=== PATIENT | male | born 1940 | race Caucasian/White ===

== ENCOUNTER 2019-11-19 09:51 | Day surgery (SDC) | payer OTHER, SELFPAY ==
[~2019-11-19] VITALS: Ht 188 cm; Wt 134.7 kg
[~2019-11-19 09:51] MED LIST: CEFAZOLIN SOD 2 GM in D5W 50 ML IV ONE
[2019-11-19 10:58] LABS: HEMATOCRIT 43.7 % (36-54); HEMOGLOBIN 14.5 g/dL (14.0-18.0); MEAN CORPUSCULAR HEMOGLOBIN 29 pg (27-31); MEAN CORPUSCULAR HGB CONC 33 % (32-36); MEAN CORPUSCULAR VOLUME 88 fL (79.0-98.0); PLATELET COUNT (AUTO) 124 K/uL (130-430); RED BLOOD CELL COUNT(AUTO) 4.95 MIL/uL (4.2-6.2); RED CELL DISTRIBUTION WIDTH 14.2 % (9.0-15.0); WHITE BLOOD COUNT (AUTO) 8.6 K/uL (4.8-10.8)
[2019-11-19 11:12] LABS: ALANINE AMINOTRANSFERASE 36 U/L (12-78); ALBUMIN 3.9 g/dL (3.4-4.8); ANION GAP 12 (5-15); ASPARTATE AMINOTRANSFERASE 24 U/L (10-37); CHLORIDE 103 mmol/L (98-107); GLUCOSE 128 mg/dL (70-99); POTASSIUM 3.8 mmol/L (3.5-5.1); SODIUM SERUM 141 mmol/L (136-145); TOTAL BILIRUBIN 0.7 mg/dL (0.0-1.0); UREA NITROGEN, BLOOD 15 mg/dL (8-21)
[2019-11-19 11:19] LABS: ATYPICAL LYMPHOCYTES % 11 % (0-0); BAND % (MANUAL) 3 % (0-6); BASOPHILS % (MANUAL) 0 % (0-2); EOSINOPHILS % (MANUAL) 0 % (0-7); LYMPHOCYTES % (MANUAL) 35 % (20-46); MONOCYTES % (MANUAL) 2 % (0-11)
[2019-11-19] MEDS ORDERED: POLYMYXIN 500,000/BACIT.10,000 UNITS in NS IRR 1 L IR ONE (15:11)
[2019-11-19] MEDS ORDERED: ONDANSETRON HCL 4 MG/2 ML VIAL IVP PRN ×2 (16:00→21:45)
[2019-11-19] MEDS ORDERED: fentaNYL CITRATE/PF 100 MCG/2 ML AMP IVP PRN ×2 (16:00)
[2019-11-19] MEDS ORDERED: ACETAMINOPHEN 325 MG TABLET PO PRN (21:45)
[2019-11-19] MEDS ORDERED: HYDROcodone/ACETAMIN 5-325 MG TAB (NORCO/ VICODIN) PO PRN ×2 (21:45)
[2019-11-19] MEDS ORDERED: LORazepam 2 MG/ML VIAL IVP PRN (21:45)
[2019-11-19] MEDS ORDERED: LR 1,000 ML IV SCH (21:45)
[2019-11-19] MEDS ORDERED: MORPHINE 2 MG/ML INJ. SYRINGE IVP PRN (21:45)
[2019-11-19] MEDS ORDERED: NORMAL SALINE 5 ML DISP.SYRIN IVF SCH (22:00)
[2019-11-19] MEDS ORDERED: fentaNYL CITRATE/PF 100 MCG/2 ML AMP ONE (22:04)
[2019-11-19] MEDS ORDERED: KETOROLAC TROMETHAMINE 30 MG VIAL IVP ONE (22:30)
[2019-11-19] MEDS ORDERED: KETOROLAC TROMETHAMINE 30 MG VIAL ONE (22:48)
--- NOTE | 2019-11-19 22:50 | NUR ---
Initial Note Received 79 y.o male from PACU status post Robotic assisted laparoscopic bilateral inguinal hernia repair. Received report from XENIA Joshua. A&O x 4. No respiratory distress noted. On O2 2L via nasal canula. No c/o pain or discomfort. Normal saline infusing to left hand without difficulty. Dressings to abdomen clean, dry & intact. Instructed on use of call light & to notify staff if in need of assistance. Verbalized understanding. Bed in low, locked position. Call light within reach.
--- NOTE | 2019-11-20 00:46 | NUR ---
Pain. C/O bilateral arm pain rated 6/10 described as aching pain. Vicodin given as ordered.
[2019-11-20 00:49] VITALS: BP_SYST 136
[2019-11-20 01:32] VITALS: BP_SYST 129
--- NOTE | 2019-11-20 02:55 | NUR ---
Requested assist to sit at side of bed. Assisted to sit at side of bed, tolerated activity well. Denies pain. Instructed to notify staff if in need of assistance. Verbalized understanding. Call light within reach.
--- NOTE | 2019-11-20 07:15 | NUR ---
OPENING NOTES PT AWAKE, ALERT, AND ORIENTED. NONLABORED BREATHING NOTED ON ROOM AIR, O2 AT 93%. PT DENIES PAIN AND SOB AT THIS TIME. NO ACUTE DISTRESS NOTED. IV LINE INTACT AND PATENT, NO SIGNS OF INFILTRATION NOTED. SURGICAL DRESSINGS ON LOWER ABDOMEN CLEAN, DRY, AND INTACT, NO ACTIVE BLEEDING NOTED. BED LOCKED AND IN LOWEST POSITION. ALL NEEDS MET. CALL LIGHT IN REACH. FALL AND ASPIRATION PRECAUTIONS IN PLACE. CONTINUE TO MONITOR.
[2019-11-20 07:18] LABS: BASOPHILS % (AUTO) 0.2 % (0.0-2.0); EOSINOPHILS % (AUTO) 0.1 % (0.0-4.0); HEMATOCRIT 41.9 % (36-54); LYMPHOCYTES # (AUTO) 2.5 K/uL (1.0-5.5); LYMPHOCYTES % (AUTO) 22.1 % (20.5-51.5); MEAN CORPUSCULAR HEMOGLOBIN 29 pg (27-31); MEAN CORPUSCULAR HGB CONC 33 % (32-36); MEAN CORPUSCULAR VOLUME 88 fL (79.0-98.0); MONOCYTES % (AUTO) 9.2 % (1.7-9.3); NEUTROPHILS # (AUTO) 7.7 K/uL (1.8-7.7); NEUTROPHILS % (AUTO) 68.4 % (40.0-70.0); PLATELET COUNT (AUTO) 119 K/uL (130-430); RED BLOOD CELL COUNT(AUTO) 4.75 MIL/uL (4.2-6.2); RED CELL DISTRIBUTION WIDTH 14.3 % (9.0-15.0); WHITE BLOOD COUNT (AUTO) 11.2 K/uL (4.8-10.8)
--- NOTE | 2019-11-20 07:21 | NUR ---
Nutrition Update Pato Scale 15 noted. Pt admitted for BI Inguinal Hernia w/o Obstruction or Gangrene Diet: 2gm Na BMI: 38.1 kg/m2 RD to follow per nutrition care standards.
[2019-11-20 08:00] VITALS: BP_SYST 146
--- NOTE | 2019-11-20 08:30 | NUR ---
PT TOLERATED FOOD WELL, WALKING AROUND THE HALLWAYS WITH PORTAL ADMINISTRATOR, TOLERATING WELL, PT URINATED THIS MORNING WELL. PT STATING WANTING TO GO HOME, WILL SPEAK TO DR. STACK
--- NOTE | 2019-11-20 09:30 | NUR ---
SPOKE TO DR. STACK REGARDING PT'S UPDATES, STATES OK TO D/C, STATED HE WILL INPUT MEDICATIONS TO FINALIZE AND D/C ORDER.
[2019-11-20 09:33] VITALS: BP_SYST 124
[2019-11-20] MEDS ORDERED: DOCU-144 PO (10:03)
[2019-11-20] MEDS ORDERED: HYDR-4272 PO (10:03)
--- NOTE | 2019-11-20 10:26 | NUR ---
PT SPOKE TO DR. STACK OVER THE PHONE REGARDING D/C INSTRUCTIONS, PT VERBALIZED UNDERSTANDING.
== END 2019-11-20 10:50 | disposition home or self-care (01) ==
LOC: SDS 09:51 → SMU 09:54 → SDS 11-20 10:50
PROVIDERS: ATTEND Surgery
DX: K40.20 Bilateral inguinal hernia, without obstruction or gangrene, not specified as recurrent (principal); Z96.659 Presence of unspecified artificial knee joint; Z11.59 Encounter for screening for other viral diseases; Z79.899 Other long term (current) drug therapy
CPT/HCPCS: 36415; 49650; 76000; 80053; C1727; C1781; J0690; J1885; J3010; J7060; U0003; 85007; 85025; 85027